=== PATIENT | male | born 1960 | race Caucasian/White ===

== ENCOUNTER 2021-01-28 09:40 | Outpatient (CLI) | payer OTHER, SELFPAY ==
[2021-01-28 10:15] VITALS: BMI 24.0
--- NOTE | 2021-01-28 10:53 | NMCV_ITS ---
NM nelia perf SPECT r/s* [id number] Earl Marino Age: 60 Gender: M : 1960 Exam Date: 01/28/2021 11:07 Ordering Phys: Arsenio Henry DO Technologist: JEFFERSON Gutierrez Exam Location: [facility] Indications: CHEST PAIN STRESS TEST Please see separate stress test report [facility] for full findings IMAGE PROTOCOL Rest/Stress 1 Lexiscan Day Radiopharmaceutical Dose (mCi) Administration Site Administered by Rest: Tc-99m 10.7 IV JEFFERSON Gutierrez Sestamibi Stress:Tc-99m 32.8 IV JEFFERSON Orona Sestamibi Rest: 28-Jan-2021 60 Discovery 630 Stress: 28-Jan-2021 30 Discovery 630 0.4mg Lexiscan. Images obtained in supine and prone position. SPECT RESULTS Technical Quality: Excellent Raw Data Analysis: Normal Image Corrections: No attenuation or motion correction applied Summed Stress Score: 0 Summed Rest Score: 0 Summed Difference Score: 0 PERFUSION FINDINGS SPECT images demonstrate homogeneous tracer distribution throughout the myocardium. FUNCTIONAL RESULTS (calculated via Gated SPECT) Stress Image LV EF (%): 62 Stress EDV (mL):84 TID: 1.02 Stress ESV (mL):32 FUNCTIONAL FINDINGS: The left ventricle is normal in size. Transient Ischemia Dilatation of 1. There is normal left ventricular systolic function. The left ventricular ejection fraction is normal with a value of 62%. There is normal left ventricular wall thickening with no regional wall motion abnormality. Normal end-diastolic and end-systolic volumes. IMPRESSIONS 1. Myocardial perfusion imaging is normal. 2. Overall left ventricular systolic function is normal without regional wall motion abnormalities. 3. The left ventricular ejection fraction is normal with a value of 62%. 4. No EKG changes with Lexiscan infusion. Please refer to separate report for details. 5. Scan indicates low risk for cardiac events. Carlie Pelaez MD (Electronically Signed) Final Date: 30 January 2021 14:40 S
--- NOTE | 2021-01-28 10:53 | ECG_ITS ---
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 Interpretive Statements NAME OF STUDY: LEXISCAN SESTAMIBI STRESS TEST INDICATION: Chest Pain PROCEDURE: At the baseline, the blood pressure was 135/77 mmHg, oxygen saturation 97% with a heart rate of 74 bpm. The electrocardiogram showed normal sinus rhythm, normal axis with normal ST-T's. The Lexiscan was infused over a period of 20 seconds. A total of 0.4 milligrams of Lexiscan was infused. The stress phase was continued for a total of 5 minutes. Heart rate at the end of the stress phase was 100 bpm, oxygen saturation 98% with a blood pressure of 144/65 mmHg. The EKG at the peak infusion revealed sinus rhythm with no significant ST-T wave changes. The study was terminated due to protocol completion. Sestamibi was injected 20 seconds after the Lexiscan infusion. Blood pressure at the end of the recovery phase was 147/73 mmHg, oxygen saturation 99% with a heart rate of 98 beats per minute. CONCLUSION: 1. No significant EKG changes with the LexiScan infusion. 2. No LexiScan induced chest pain or cardiac arrhythmia. 3. Normal blood pressure and heart rate response. 4. Sestamibi/sestamibi perfusion scan pending; see separate report. RESULTS TO ESTEPHANIA CHURCHILL DO Electronically Signed On 01-30-2021 14:39:21 CDT by Carlie Pelaez M.D. [email or web address]
[2021-01-28] MEDS: regadenoson 0.4 Mg/5 ml Syringe IVP (12:02)
[2021-01-28 12:24] VITALS: BP 143/84; PULSE 73
== END 2021-01-28 09:41 | disposition home or self-care (01) ==
PROVIDERS: PCP Electrodiagnostic Medicine; Visit Provider Electrodiagnostic Medicine
DX: E87.1 Hypo-osmolality and hyponatremia (principal); R07.9 Chest pain, unspecified; R00.0 Tachycardia, unspecified; I10 Essential (primary) hypertension; E11.9 Type 2 diabetes mellitus without complications
CPT/HCPCS: 78452; 93017; A9500; J2785